=== PATIENT | male | born 1990 | race Caucasian/White ===

== ENCOUNTER 2018-11-02 13:48 | Emergency (ER) | payer OTHER, SELFPAY ==
[2018-11-02 13:49] VITALS: BP 123/70; PULSE 71; RESP 14; TEMP 37.1; O2SAT 100; BMI 23.7
--- NOTE | 2018-11-02 14:55 | ED.VISSUMM ---
- ER Visit Summary Date of Service: 11/02/18 Chief Complaint: Laceration History of Present Illness: The patient is a 28 M left thumb laceration after an incision with a knife today. Physical Examination: 1 cm laceration distal left thumb there is a small flap and it does not involve the nail or nailbed. Emergency Department Course and Treatment: After cleaning with Shur-Clens I used Dermabond for approximation. Tetanus will be updated. Impression: Laceration left hand 1 cm This note was generated with [employer] dictation software. It may contain incorrect words, spelling, and punctuation that were not noted in review of the chart prior to signing ED Disposition - Plan for ED Patient: Disposition: Home or Assisted Living Chief Complaint: Laceration Instructions: ED Laceration Hand, ED Laceration Ext Skin Glue Referrals: Arun Alan III, MD [Primary Care Provider] -
[2018-11-02] MEDS: Diphth,Pertuss(Acell),Tet Vac 0.5 ML Vial IM (15:00)
== END 2018-11-02 15:12 | disposition home or self-care (01) ==
PROVIDERS: Emergency Provider Emergency Medicine; Family Provider Family Medicine; PCP Family Medicine
DX: S61.012A Laceration without foreign body of left thumb without damage to nail, initial encounter (principal); W26.0XXA Contact with knife, initial encounter; Y92.9 Unspecified place or not applicable; Y99.9 Unspecified external cause status; Z23 Encounter for immunization
CPT/HCPCS: 12001; 90471; 90715; 99283